=== PATIENT | female | born 1955 | race Caucasian/White ===

== ENCOUNTER 2016-10-04 15:22 | Outpatient (CLI) | payer MEDICARE, MEDICAID | END 2016-10-04 15:23 | disposition home or self-care (01) | DX: E03.9 Hypothyroidism, unspecified (principal) ==

== ENCOUNTER 2016-11-29 09:29 | Outpatient (CLI) | payer MEDICARE, MEDICAID | END 2016-11-29 09:30 | disposition home or self-care (01) | DX: R53.83 Other fatigue (principal); E03.9 Hypothyroidism, unspecified; Z13.220 Encounter for screening for lipoid disorders ==

== ENCOUNTER 2017-02-08 14:26 | Outpatient (CLI) | payer MEDICARE, MEDICAID ==
[2017-02-08 20:22] LABS: THYROID STIMULATING HORMONE 5.19 uIU/mL (0.34-5.60)
== END 2017-02-08 14:27 | disposition home or self-care (01) ==
LOC: LAB.N 14:26
PROVIDERS: ATTEND Nurse Practitioner Family
DX: E03.9 Hypothyroidism, unspecified (principal)
CPT/HCPCS: 36415; 84439; 84443

== ENCOUNTER 2017-09-06 14:40 | Outpatient (CLI) | payer MEDICARE, MEDICAID | END 2017-09-06 14:41 | disposition home or self-care (01) | LOC: LAB.N 14:40 | PROVIDERS: ATTEND Nurse Practitioner Family | DX: E03.9 Hypothyroidism, unspecified (principal) | CPT/HCPCS: 36415; 84443 ==